=== PATIENT | male | born 1960 | race Caucasian/White ===

== ENCOUNTER 2024-07-08 13:55 | Inpatient (IN) ==
[2024-07-08 14:55] LABS: ABS Basophils 0.1 10^3/uL (0.0-0.1); ABS Eosinophils 0.1 10^3/uL (0.0-0.5); ABS Lymphocytes 1.8 10^3/uL (1.0-4.8); ABS Monocytes 0.7 10^3/uL (0.0-1.1); ABS Neutrophils 11.4 10^3/uL (1.5-7.6); ABS Nucleated RBC 0.01 10^3/ul; Eosinophil % 0.4 %; Hematocrit 31.4 % (38-53); Hemoglobin 10.6 g/dL (13.2-16.3); Lymphocyte % 12.7 %; Mean Corpuscular Hemoglobin 28.3 pg (27-33); Mean Corpuscular Hgb Conc 33.8 g/dL (31-36); Mean Corpuscular Volume 83.7 fL (80-97); Mean Platelet Volume 8.3 fL (7.5-11.2); Platelet Count 308 10^3/uL (150-450); Red Blood Count 3.76 10^6/uL (4.06-5.63); Red Cell Distribution Width 15.2 % (12-17)
[2024-07-08 15:06] LABS: INR 1.14 (0.85-1.14)
[2024-07-08] MEDS: Lactated Ringers 1000 ml BAG 1,000 ML IV ONE (15:26)
[2024-07-08 15:45] LABS: Albumin/Globulin Ratio 2.1 (1-3); Calcium 8.8 mg/dL (8.6-10.3); Creatinine, Serum 0.86 mg/dL (0.67-1.17); Globulin 1.9 g/dL (2-4); Potassium 4.8 mmol/L (3.5-5.0); Total Bilirubin 0.5 mg/dL (0.2-1.0); Total Protein 5.9 g/dL (6.4-8.9); eGFR CKD-EPI 97.3 (>60)
[2024-07-08] MEDS ORDERED: Pantoprazole 80 mg in NS BAG 80 MG/250 ML BAG IV SCH (16:00)
[2024-07-08] MEDS: Pantoprazole VIAL 40 MG VIAL IV ONE (16:07)
[2024-07-08] MEDS ORDERED: Lidocaine 2% PF 5 ML VIAL ONE (16:16)
[2024-07-08] MEDS ORDERED: Propofol 10 MG/ML 20 ML BTL ONE (16:16)
[2024-07-08 16:27] LABS: High Sensitivity Troponin 1 Hr 15 pg/mL (<20)
[2024-07-08] MEDS ORDERED: Midazolam 2 mg/2 ml VIAL 1 mg/ml 2 ml VIAL (2 mg) ONE (16:55)
[2024-07-08] MEDS ORDERED: fentaNYL 100 mcg/2 ml 50 MCG/ML VIAL ONE (16:56)
[2024-07-08] MEDS ORDERED: Acetaminophen IV 1 GM/100ML 1,000 MG/100 ML BAG IV ONE (18:04)
[2024-07-08] MEDS ORDERED: Naloxone 0.4 mg VIAL 0.4 mg/ml 1 ml VIAL IV PRN (18:15)
[2024-07-08] MEDS: Pantoprazole 80 mg in NS BAG 80 MG/250 ML BAG IV ONE (19:41)
[2024-07-08] MEDS: Pantoprazole 80 mg in NS BAG 80 MG/250 ML BAG IV SCH (20:58)
[2024-07-08 22:38] LABS: Hematocrit 27.7 % (38-53); Hemoglobin 9.3 g/dL (13.2-16.3)
[2024-07-09 07:32] LABS: Calcium 8.2 mg/dL (8.6-10.3); Creatinine, Serum 0.75 mg/dL (0.67-1.17); eGFR CKD-EPI 101.4 (>60)
[2024-07-09 07:33] LABS: Hematocrit 24.8 % (38-53); Hemoglobin 8.4 g/dL (13.2-16.3); Mean Corpuscular Hemoglobin 28.2 pg (27-33); Mean Corpuscular Volume 82.9 fL (80-97); Mean Platelet Volume 8.4 fL (7.5-11.2); Platelet Count 230 10^3/uL (150-450); Red Blood Count 2.99 10^6/uL (4.06-5.63); Red Cell Distribution Width 15.2 % (12-17); White Blood Count 8.9 10^3/uL (3.6-10.2)
[2024-07-09 08:33] LABS: ABS Basophils 0.1 10^3/uL (0.0-0.1); ABS Eosinophils 0.1 10^3/uL (0.0-0.5); ABS Lymphocytes 2.3 10^3/uL (1.0-4.8); ABS Monocytes 0.4 10^3/uL (0.0-1.1); ABS Neutrophils 5.9 10^3/uL (1.5-7.6); Eosinophil % 1.7 %; Lymphocyte % 26.2 %
[2024-07-10 06:24] LABS: ABS Basophils 0.1 10^3/uL (0.0-0.1); ABS Eosinophils 0.1 10^3/uL (0.0-0.5); ABS Lymphocytes 1.6 10^3/uL (1.0-4.8); ABS Monocytes 0.4 10^3/uL (0.0-1.1); ABS Neutrophils 4.8 10^3/uL (1.5-7.6); Eosinophil % 2.2 %; Hematocrit 21.8 % (38-53); Hemoglobin 7.3 g/dL (13.2-16.3); Lymphocyte % 22.8 %; Mean Corpuscular Hemoglobin 28.2 pg (27-33); Mean Corpuscular Hgb Conc 33.6 g/dL (31-36); Mean Corpuscular Volume 83.9 fL (80-97); Mean Platelet Volume 7.8 fL (7.5-11.2); Platelet Count 236 10^3/uL (150-450); Red Cell Distribution Width 15.2 % (12-17); White Blood Count 6.9 10^3/uL (3.6-10.2)
[2024-07-10] MEDS: Ferric Gluconate IV 250 MG in NS 0.9% 250 ml 200 ML IVPB ONE (22:11)
[2024-07-11 06:18] LABS: ABS Basophils 0.1 10^3/uL (0.0-0.1); ABS Eosinophils 0.2 10^3/uL (0.0-0.5); ABS Lymphocytes 1.6 10^3/uL (1.0-4.8); ABS Monocytes 0.5 10^3/uL (0.0-1.1); ABS Neutrophils 4.8 10^3/uL (1.5-7.6); Eosinophil % 2.2 %; Hematocrit 21.9 % (38-53); Hemoglobin 7.4 g/dL (13.2-16.3); Lymphocyte % 21.9 %; Mean Corpuscular Hemoglobin 28.4 pg (27-33); Mean Corpuscular Hgb Conc 33.7 g/dL (31-36); Mean Corpuscular Volume 84.5 fL (80-97); Mean Platelet Volume 7.9 fL (7.5-11.2); Nucleated Red Blood Cells % 0.1 %/100WBC (0.0-0.8); Platelet Count 227 10^3/uL (150-450); Red Cell Distribution Width 15.1 % (12-17); White Blood Count 7.1 10^3/uL (3.6-10.2)
[2024-07-11] MEDS: Ferric Gluconate IV 250 MG in NS 0.9% 250 ml 200 ML IVPB ONE (10:12)
[2024-07-11] MEDS ORDERED: Ferric Gluconate IV 250 MG in NS 0.9% 250 ml 200 ML IVPB ONE (12:00)
[2024-07-11 14:43] VITALS: BP 121/98
== END 2024-07-11 17:56 | disposition home or self-care (01) | DRG 377 ==
LOC: ED 13:55 → MEDTELE 16:22 → OR 16:43
PROVIDERS: ADMIT Internal Medicine; ATTEND Internal Medicine
PROC: O.GIEGD (2024-07-08 16:05)